=== PATIENT | male | born 1975 | race Caucasian/White ===

== ENCOUNTER 2019-07-04 06:39 | Observation (INO) | payer OTHER ==
[~2019-07-04] VITALS: Ht 188 cm; Wt 106.6 kg
[2019-07-04 06:47] VITALS: BP 131/89
[2019-07-04 06:55] LABS: ABSOLUTE BASOPHILS 0.1 thou/uL (0.0-0.2); ABSOLUTE EOSINOPHILS 0.6 thou/uL (0.0-0.7); ABSOLUTE LYMPHOCYTES 2.4 thou/uL (0.8-5.3); ABSOLUTE MONOCYTES 0.6 thou/uL (0.0-1.2); ABSOLUTE NEUTROPHILS 5.6 thou/uL (1.6-8.1); BASOPHILS 0.7 %; EOSINOPHILS 6.3 %; HEMATOCRIT 42.6 % (42.0-52.0); HEMOGLOBIN 14.9 gm/dL (14.0-18.0); MCH 30.6 pg (26.0-34.0); MCHC 34.9 g/dL (28.0-37.0); MCV 87.6 fL (80.0-100.0); MONOCYTES 6.5 %; MPV 10.1 fl. (7.2-11.1); NUCLEATED RBCS 0 /100WBC; PLATELET COUNT* 155 thou/uL (150-400); POLYS 60.5 %; RBC 4.86 mil/uL (4.50-6.00); RDW-CV 13.6 % (10.5-14.5); WBC 9.3 thou/uL (4.0-11.0)
[2019-07-04 07:03] LABS: CALCIUM 8.6 mg/dL (8.5-10.1); CREATININE 1.2 mg/dL (0.6-1.3)
[2019-07-04 07:08] LABS: ALBUMIN 3.4 g/dL (3.4-5.0); TOTAL BILIRUBIN 0.5 mg/dL (<0.1-1.0); TOTAL PROTEIN 6.7 g/dL (6.4-8.2)
[2019-07-04 08:04] LABS: URINE BILIRUBIN NEGATIVE (Negative); URINE BLOOD TRACE (Negative); URINE CLARITY CLEAR; URINE COLOR YELLOW; URINE GLUCOSE-RANDOM NEGATIVE (Negative); URINE KETONES NEGATIVE (Negative); URINE LEUKOCYTES-REFLEX NEGATIVE (Negative); URINE NITRITE-REFLEX NEGATIVE (Negative); URINE PROTEIN NEGATIVE (Negative); URINE UROBILINOGEN 0.2 E.U./dl (0.2-1.0)
[2019-07-04 12:13] VITALS: BP 116/83
--- NOTE | 2019-07-04 15:20 | OP ---
[facility] [address] [place] [address] OPERATIVE REPORT Name: MARY ROBERT Mable Room: [address] [place] .R.#: [id number] Admission: 07/04/19 Attend Phys: Martínez Rojas Discharge: Date of : 73 Report #: [id number] THIS REPORT FOR: //name// CC: [facility] physician/PCP Gopal Templeton DATE OF SERVICE: 07/04/2019 PREOPERATIVE DIAGNOSIS: Right renal pelvis/ureteropelvic junction stone. POSTOPERATIVE DIAGNOSIS: Right renal pelvis/ureteropelvic junction stone. PROCEDURES: Cystourethroscopy, right retrograde pyelogram and right ureteral stent placement (6-Nicaraguan x 28 cm). SURGEON: Aletha Berger MD ANESTHESIA: General. ESTIMATED BLOOD LOSS: None. COMPLICATIONS: None. SPECIMENS: None. INDICATIONS FOR PROCEDURE: The patient is a 43-year-old male who presented with a large 1.3 x 1.6 cm stone in the right renal pelvis/UPJ causing hydronephrosis. Options were discussed and due to the large nature of the stone and his intractable pain, he opted to proceed with cystoscopy, right retrograde pyelogram, right ureteroscopy and right stent. He does understand the risk for procedure, which include infection, bleeding; injuries to the urethra, bladder, ureter; need for secondary procedures, stent pain, cardiopulmonary complications. He voiced understanding and wishes to proceed. DESCRIPTION OF PROCEDURE: After informed consent was obtained, the patient was taken back to the operating suite and placed supine. After induction of general anesthesia, he was placed in dorsal lithotomy position. Genitalia prepped and draped in standard fashion. Rigid cystoscopy was performed. I attempted to place the 22-Nicaraguan cystoscope sheath, but he had some stenosis just inside the meatus, so he was dilated serially with Joe's from 16-26 Nicaraguan. There was a pretty stiff stricture just inside the meatus and the fossa, but this did dilate. I was then able to place the 22-Nicaraguan scope. The urethra was normal. There were no other areas of stricture and prostate was short and nonobstructing. Pancystoscopy revealed no tumors, lesions, trabeculations or stones. Orifices were orthotopic in position. [place] [address] OPERATIVE REPORT Name: MARY ROBERT Room: [address] IN [facility]#: [id number] Admission: 07/04/19 Attend Phys: Martínez Rojas Discharge: Date of : 73 Report #: [id number] right with a cone tip catheter. This revealed a delicate ureter with a large ovoid filling defect in the right renal pelvis consistent with the stone and some moderate hydronephrosis surrounding this. A sensor wire was threaded up into the kidney, past the stone without difficulty. The bladder was drained and the scope was removed. Using a dual-lumen catheter, a second wire was placed. I then tried to place the 08/15 ureteral access sheath over one of the wires, but this would not pass the level of the very distal ureter. I took part of the sheath and then dilated with just the 11-Nicaraguan portion and this actually passed easily; however, putting the sheath back together, this still would not pass the distal ureter due to resistance, so I decided to abort and just place a stent to allow for passive dilation. The wire was backloaded through the cystoscope after one of the wires had been removed and a 6-Nicaraguan x 28 cm double-J stent was threaded over the wire. This passed easily and there was good curl in the upper pole above the stone and good curl in the bladder under direct visualization. The bladder was then drained and the scope was removed, 5 mL of lidocaine jelly were used per urethra for local anesthesia and a 60 mg B and O suppository was placed per rectum for postoperative discomfort. He was awoken, extubated, and taken to recovery in satisfactory condition. He will be dismissed to the floor and can go home later if pain is controlled. He will require a second procedure for ureteroscopy to retrieve the stone in a week or two after he is passively dilated with the stent. <ELECTRONICALLY SIGNED> By: Aletha Berger MD 07/04/19 1520 [id number] [id number] Berger MD /nt
[2019-07-04 16:30] VITALS: BP 117/74
[2019-07-04 20:00] VITALS: BP 123/66
[2019-07-04] MEDS ORDERED: NORCO 5-325 TA1 EAC1 PO (20:08)
[2019-07-04] MEDS ORDERED: LEVSIN0.125 MG PO (20:09)
[2019-07-04] MEDS ORDERED: PHENAZOPYRIDIN200 M2 PO (20:10)
[2019-07-04 20:12] VITALS: BP 117/74
[2019-07-04 20:20] LABS: HEMATOCRIT 42.1 % (42.0-52.0); HEMOGLOBIN 14.5 gm/dL (14.0-18.0); MCH 30.6 pg (26.0-34.0); MCHC 34.5 g/dL (28.0-37.0); MCV 88.8 fL (80.0-100.0); MPV 10.3 fl. (7.2-11.1); NUCLEATED RBCS 0 /100WBC; PLATELET COUNT* 145 thou/uL (150-400); RBC 4.74 mil/uL (4.50-6.00); RDW-CV 13.6 % (10.5-14.5); WBC 10.7 thou/uL (4.0-11.0)
[2019-07-04 20:35] LABS: CALCIUM 8.2 mg/dL (8.5-10.1); CREATININE 1.2 mg/dL (0.6-1.3); POTASSIUM 4.6 mmol/L (3.5-5.1); TOTAL BILIRUBIN 0.3 mg/dL (<0.1-1.0); TOTAL PROTEIN 6.4 g/dL (6.4-8.2)
[2019-07-04 21:25] LABS: ABSOLUTE EOSINOPHILS 0.2 thou/uL (0.0-0.7); ABSOLUTE LYMPHOCYTES 1.2 thou/uL (0.8-5.3); ABSOLUTE MONOCYTES 0.1 thou/uL (0.0-1.2); ABSOLUTE NEUTROPHILS 9.2 thou/uL (1.6-8.1); ANISOCYTOSIS 1+; PLATELET ESTIMATE DECREASED
--- NOTE | 2019-07-04 21:59 | NUR ---
Patient was ambulating independently to bathroom. Urine was tea colored and had one small clot,no stone observed. Vitals were within normal limits. Lungs were clear to ausclutation. He denied nausea. He was drinking fluids well. He had oral pain meds x 1 and then I did repeat the pyridium and levsin before he left. Labs were called to Dr pettit who did give the order that he may be discharged. IV in his L antecubital was discontinued and cotton ball applied. He did verbalize understanding of discharge instructions and so did his . Prescriptions were given to patient. All the risk factors were explained and he verbalized understanding. He was escorted to exit via wheelchair and his did meet us at exit where he got into the vehicle without difficulty.
--- NOTE | 2019-07-11 09:25 | CON ---
[address] [address] CONSULTATION Name: MARY ROBERT Room: [address] Charlie Roman#: [id number] Admission: 07/04/19 Attend Phys: Martínez Rojas Discharge: 07/04/19 Date of : 73 Report #: [id number] THIS REPORT FOR: //name// CC: [facility] physician/PCP Gopal Templeton DATE OF SERVICE: 07/04/2019 REASON FOR CONSULTATION: Large right renal pelvis stone. HISTORY OF PRESENT ILLNESS: The patient is a 43-year-old male with prior history of stones, who presented with right flank pain and abdominal pain. This began last night and had been similar to an episode in 2018 when he had a kidney stone that passed. He denies any fever, but he has had some nausea and appetite loss for the past couple of months. He denies any vomiting. He also reports some on and off diarrhea. He has never had surgery for stones before. A CT scan was done and showed a large right renal pelvis/UPJ stone causing obstruction. PAST MEDICAL HISTORY: Includes kidney stones. PAST SURGICAL HISTORY: Includes multiple back surgeries, shoulder surgery and appendectomy. MEDICATIONS: None at home. SOCIAL HISTORY: The patient denies tobacco use. He does drink alcohol, 1-2 drinks a month and he uses marijuana for back pain periodically. FAMILY HISTORY: Noncontributory. ALLERGIES: None. REVIEW OF SYSTEMS: A 12-point review of systems is performed and is negative except as noted above in HPI. PHYSICAL EXAMINATION: VITAL SIGNS: Temperature is 36.3, pulse is 66, blood pressure 116/83, respirations 15 and pulse ox 96%. GENERAL: He is a well-developed, well-nourished white male in no acute distress. He is alert and oriented x 3. HEENT: Normocephalic, atraumatic. NECK: Supple. HEART: Regular rate and rhythm. LUNGS: [place] [address] CONSULTATION Name: JAKOBMARY WILLIAMSON Mable Room: [address] Abel#: [id number] Admission: 07/04/19 Attend Phys: Martínez Rojas Discharge: 07/04/19 Date of : 73 Report #: [id number] ABDOMEN: Soft, nontender, nondistended. BACK: He has no CVA tenderness. EXTREMITIES: Without edema. SKIN: Without lesions or rashes. GENITOURINARY: He has a normal circumcised phallus and normal descended testes that are normal to palpation. LABORATORY DATA: White count 9.3, hemoglobin 14.9 and platelets 155. His BMP is normal with a creatinine of 1.2 and BUN of 18. Urinalysis is negative for infection. CT scan was reviewed and reveals a large 1.3 x 1.6 cm right renal pelvis/UPJ stone causing obstruction. He has no other stone disease besides this. Other findings are per report and are incidental. ASSESSMENT AND PLAN: Large right renal pelvis/UPJ obstructing stone. Options were discussed with the patient and his significant other. We discussed that the stone is way too large to pass on its own. He will require intervention. We discussed options including outpatient ESWL therapy versus ureteroscopy versus PCNL. If we opted for PCNL, he would need a nephrostomy tube placed now to relieve his pain and then he will be scheduled electively for PCNL as an outpatient. He does not feel he can manage his pain at home and does not want to be dismissed with a nephrostomy tube. Therefore, he opts for right ureteroscopy, laser lithotripsy and stent. He does understand the risks, which include infection, bleeding, injury to the urethra, bladder, ureter, need for secondary procedures, stent pain, cardiopulmonary complications. He voiced understanding and wishes to proceed today. <ELECTRONICALLY SIGNED> By: Aletha Berger MD 07/11/19 0925 1520 [id number] Berger MD /nt
== END 2019-07-04 21:48 | disposition home or self-care (01) ==
LOC: M.ERS 06:39 → M.ORTHSURG 10:36 → M.TBA-ER 10:36 → M.ORTHSURG 16:31
PROVIDERS: Emergency Medicine; ADMIT Internal Medicine
DX: N13.2 Hydronephrosis with renal and ureteral calculous obstruction (principal); Z90.49 Acquired absence of other specified parts of digestive tract

== ENCOUNTER 2019-07-08 20:15 | Emergency (ER) | payer OTHER ==
[~2019-07-08] VITALS: Ht 188 cm; Wt 108.9 kg
[~2019-07-08 20:15] MED LIST: LEVSIN0.125 MG PO; NORCO 5-325 TA1 EAC1 PO; PHENAZOPYRIDIN200 M2 PO
[2019-07-08 21:07] LABS: ABSOLUTE BASOPHILS 0.1 thou/uL (0.0-0.2); ABSOLUTE EOSINOPHILS 0.6 thou/uL (0.0-0.7); ABSOLUTE LYMPHOCYTES 2.4 thou/uL (0.8-5.3); ABSOLUTE MONOCYTES 0.4 thou/uL (0.0-1.2); ABSOLUTE NEUTROPHILS 6.4 thou/uL (1.6-8.1); BASOPHILS 0.7 %; EOSINOPHILS 6.4 %; HEMATOCRIT 43.7 % (42.0-52.0); HEMOGLOBIN 15.2 gm/dL (14.0-18.0); LYMPHOCYTES 23.9 %; MCH 30.4 pg (26.0-34.0); MCHC 34.7 g/dL (28.0-37.0); MCV 87.5 fL (80.0-100.0); MONOCYTES 4.5 %; NUCLEATED RBCS 0 /100WBC; PLATELET COUNT* 171 thou/uL (150-400); POLYS 64.5 %; RBC 4.99 mil/uL (4.50-6.00); RDW-CV 13.6 % (10.5-14.5); WBC 9.9 thou/uL (4.0-11.0)
[2019-07-08 21:09] LABS: URINE BLOOD 3+ (Negative); URINE CLARITY CLEAR; URINE GLUCOSE-RANDOM NEGATIVE (Negative); URINE KETONES NEGATIVE (Negative); URINE LEUKOCYTES-REFLEX TRACE (Negative); URINE PROTEIN 2+ (Negative)
[2019-07-08 21:11] LABS: URINE BILIRUBIN 1+ (Negative); URINE COLOR AMBER; URINE NITRITE-REFLEX POSITIVE (Negative)
[2019-07-08 21:16] LABS: BACTERIA-REFLEX 1-9 Few /HPF (None Seen); CASTS None Seen /LPF (None Seen); MUCUS None Seen strn/LPF (None Seen); SQUAMOUS 0-3 Few /LPF (0-3); URINE RBC >20 Many /HPF (0-2); URINE WBC-REFLEX 0-5 Rare /HPF (0-5)
[2019-07-08 21:17] LABS: CRYSTALS None Seen /LPF (None Seen)
[2019-07-08 21:28] LABS: CALCIUM 8.8 mg/dL (8.5-10.1); POTASSIUM 4.2 mmol/L (3.5-5.1)
[2019-07-08 21:33] LABS: ALBUMIN 3.3 g/dL (3.4-5.0); TOTAL BILIRUBIN 0.4 mg/dL (<0.1-1.0); TOTAL PROTEIN 6.7 g/dL (6.4-8.2)
[2019-07-08] MEDS ORDERED: CIPRO500 MG PO (21:37)
[2019-07-08] MEDS ORDERED: MIRALAX17 GM PO (21:37)
[2019-07-08 22:15] VITALS: BP 120/84
== END 2019-07-08 22:16 | disposition home or self-care (01) ==
LOC: M.ERS 20:15
PROVIDERS: Nurse Practitioner Family
DX: S00.03XA Contusion of scalp, initial encounter (principal); K59.00 Constipation, unspecified; N13.9 Obstructive and reflux uropathy, unspecified; F17.210 Nicotine dependence, cigarettes, uncomplicated; Z90.49 Acquired absence of other specified parts of digestive tract; Z87.442 Personal history of urinary calculi; Z98.890 Other specified postprocedural states; Z96.0 Presence of urogenital implants; X58.XXXA Exposure to other specified factors, initial encounter; Y92.89 Other specified places as the place of occurrence of the external cause; Y93.89 Activity, other specified; Y99.8 Other external cause status

== ENCOUNTER 2019-07-25 15:10 | Inpatient (IN) | payer OTHER ==
[~2019-07-25] VITALS: Ht 188 cm; Wt 106.4 kg
[~2019-07-25 15:10] MED LIST changes: +CIPRO500 MG PO; +MIRALAX17 GM PO
[2019-07-25 15:16] VITALS: BP 117/77
[2019-07-25] MEDS ORDERED: PERCOCET 5-3251 EACH PO (15:20)
[2019-07-25 15:43] LABS: URINE BILIRUBIN NEGATIVE (Negative); URINE BLOOD 3+ (Negative); URINE CLARITY CLEAR; URINE COLOR YELLOW; URINE GLUCOSE-RANDOM NEGATIVE (Negative); URINE KETONES NEGATIVE (Negative); URINE LEUKOCYTES-REFLEX 1+ (Negative); URINE NITRITE-REFLEX NEGATIVE (Negative); URINE PROTEIN 1+ (Negative); URINE SPECIFIC GRAVITY >= 1.030 (1.005-1.030); URINE UROBILINOGEN 0.2 E.U./dl (0.2-1.0)
[2019-07-25 15:53] LABS: BACTERIA-REFLEX >30 Many /HPF (None Seen); CRYSTALS None Seen /LPF (None Seen); FINE GRANULAR CASTS 0-3 Few /LPF (None Seen); MUCUS 0-3 Light strn/LPF (None Seen); SQUAMOUS 0-3 Few /LPF (0-3); URINE RBC >20 Many /HPF (0-2)
[2019-07-25 16:25] LABS: ABSOLUTE BASOPHILS 0.2 thou/uL (0.0-0.2); ABSOLUTE EOSINOPHILS 0.4 thou/uL (0.0-0.7); ABSOLUTE LYMPHOCYTES 2.1 thou/uL (0.8-5.3); ABSOLUTE MONOCYTES 0.9 thou/uL (0.0-1.2); ABSOLUTE NEUTROPHILS 11.6 thou/uL (1.6-8.1); BASOPHILS 1.1 %; EOSINOPHILS 2.3 %; HEMATOCRIT 42.9 % (42.0-52.0); MCH 30.9 pg (26.0-34.0); MCHC 34.9 g/dL (28.0-37.0); MCV 88.7 fL (80.0-100.0); MONOCYTES 6.2 %; NUCLEATED RBCS 0 /100WBC; PLATELET COUNT* 215 thou/uL (150-400); POLYS 76.4 %; RBC 4.84 mil/uL (4.50-6.00); RDW-CV 13.3 % (10.5-14.5); WBC 15.1 thou/uL (4.0-11.0)
[2019-07-25 16:34] LABS: CALCIUM 9.6 mg/dL (8.5-10.1); CREATININE 1.7 mg/dL (0.6-1.3); POTASSIUM 4.7 mmol/L (3.5-5.1)
[2019-07-25 16:38] LABS: ALBUMIN 3.6 g/dL (3.4-5.0); TOTAL BILIRUBIN 0.8 mg/dL (<0.1-1.0); TOTAL PROTEIN 7.8 g/dL (6.4-8.2)
--- NOTE | 2019-07-25 22:30 | NUR ---
PATIENT PLACED ON HOSPITAL BED FOR THE NIGHT IN ED.
[2019-07-25 23:48] VITALS: BP 105/54
--- NOTE | 2019-07-26 02:28 | NUR ---
PATIENT HAS BEEN RESTING COMFORTABLY IN ER BED, BOARDING AT THIS TIME. VSS ON RA. NO C/O PAIN AT THIS TIME. PATIENT IS UP AD-ANN TO THE BATHROOM AND STEADY ON FEET. NURSING TO CONTINUE MONITORING.
[2019-07-26 02:58] LABS: HEMATOCRIT 38.3 % (42.0-52.0); MCH 30.2 pg (26.0-34.0); MPV 10.1 fl. (7.2-11.1); RBC 4.3 mil/uL (4.50-6.00); RDW-CV 13.3 % (10.5-14.5)
[2019-07-26 03:13] LABS: ALBUMIN 2.7 g/dL (3.4-5.0); CALCIUM 8.7 mg/dL (8.5-10.1); CREATININE 1.4 mg/dL (0.6-1.3); POTASSIUM 4.8 mmol/L (3.5-5.1); TOTAL BILIRUBIN 0.5 mg/dL (<0.1-1.0); TOTAL PROTEIN 6.3 g/dL (6.4-8.2)
--- NOTE | 2019-07-26 07:05 | NUR ---
PATIENT SLEEPING WELL THROUGHOUT THE NIGHT. VSS ON RA. NO C/O PAIN. IV IN RIGHT AC- NS @ 100ML/HR. REPORT GIVEN TO ER NURSE. NURSING TO CONTINUE MONTIORING.
--- NOTE | 2019-07-26 07:17 | NUR ---
THIS NURSE RECEIVED REPORT FROM ROBLES TORRES. THIS NURSE TO ASSUME PT CARE AT THIS TIME.
[2019-07-26 14:25] VITALS: BP 108/63
[2019-07-26 15:00] VITALS: BP 98/56
[2019-07-26 15:07] VITALS: BP 108/63
[2019-07-26 20:00] VITALS: BP 119/72
[2019-07-27] VITALS: BP 105/75
[2019-07-27 04:46] LABS: HEMATOCRIT 39.2 % (42.0-52.0); HEMOGLOBIN 13.2 gm/dL (14.0-18.0); MCH 30.4 pg (26.0-34.0); MCHC 33.8 g/dL (28.0-37.0); MPV 10.4 fl. (7.2-11.1); RBC 4.35 mil/uL (4.50-6.00); RDW-CV 12.9 % (10.5-14.5); WBC 10.7 thou/uL (4.0-11.0)
[2019-07-27 04:53] LABS: CALCIUM 9.2 mg/dL (8.5-10.1); CREATININE 1.1 mg/dL (0.6-1.3); MAGNESIUM 1.9 mg/dL (1.8-2.4); POTASSIUM 5.1 mmol/L (3.5-5.1)
--- NOTE | 2019-07-27 05:54 | NUR ---
PT IS A&O X4, RESTING IN BED AT START OF SHIFT, REQUESTED BOX LUNCH AND RESUMED SLEEPING FOR THE SHIFT. NO C/O OF PAIN OR DISCOMFORT NOTED BY PT. ALL CURRENT NEEDS HAVE BEEN MET, CURRENTLY ASLEEP IN BED WITH CALL LIGHT WITHIN REACH.
[2019-07-27] MEDS ORDERED: LEVSIN0.125 MG PO (10:10)
[2019-07-27] MEDS ORDERED: CEFUROXIME500 MG PO (10:10)
[2019-07-27 11:30] VITALS: BP 122/82
[2019-07-27 12:00] VITALS: BP 114/76
[2019-07-27 12:18] VITALS: BP 122/82
--- NOTE | 2019-07-27 13:30 | NUR ---
ASSUMED PT CARE AT 0700, PT A&O X4, VSS, RA, REMAINS MED SURG STATUS, FULL ASSESSMENT CHARTED. PT DISCHARGED AT APPROX 1320 WITH , EDUCATED ON ALL DISCHARGE INSTRUCTIONS INCLUDING MEDICATIONS AND FOLLOW UP APPOINTMENTS. IV REMOVED, HOURLY ROUNDING COMPLETED.
== END 2019-07-27 13:20 | disposition home or self-care (01) | DRG 871 ==
LOC: M.ERS 15:10 → M.TBA-ER 17:41 → M.2W 07-26 15:00
PROVIDERS: Family Medicine; Internal Medicine; ADMIT Internal Medicine
DX: A41.9 Sepsis, unspecified organism (principal); S37.061A Major laceration of right kidney, initial encounter; N17.0 Acute kidney failure with tubular necrosis; N10 Acute pyelonephritis; N20.1 Calculus of ureter; K75.81 Nonalcoholic steatohepatitis (NASH); Z90.49 Acquired absence of other specified parts of digestive tract; Z87.442 Personal history of urinary calculi; F12.90 Cannabis use, unspecified, uncomplicated; N28.89 Other specified disorders of kidney and ureter; X58.XXXA Exposure to other specified factors, initial encounter; Y93.89 Activity, other specified; Y92.89 Other specified places as the place of occurrence of the external cause; Y99.8 Other external cause status